=== PATIENT | female | born 1955 | race African-American/Black ===

== ENCOUNTER 2016-11-30 22:23 | Inpatient (IN) | payer MEDICARE, OTHER ==
--- NOTE | ~2016-11-30 | CO ---
Unit #: [id number] #: [id number] Patient: SHANA LLANES [id number] [place] [address] [id number] I MR#: [id number] NAME: SHANA LLANES. ROOM: 13 Age: 61 Sex: F Admission Date: 11/30/2016 : 1955 Attending Physician: Husam Stevens M.D. Consultation Date: 12/01/2016 CONSULTATION REPORT SUBJECTIVE Shana is a 61-year-old with history of psoriasis. She has thick plaques along her hairline at her forehead. These areas were described at the time of her admission H and P. please see H and P dated 12/01/2016. Dictated by... Mary Martinez P.A.-C. for Lisette Hyatt/valente TD: 12/04/2016 22:25 JOB #: [id number] CONSULTATION REPORT Page 1 of 1 X Mary Martinez CONSULTATION REPORT
--- NOTE | ~2016-11-30 | HP ---
Unit #: [id number] #: [id number] Patient: SHANA LLANES [id number] [place] [address] [id number] MR#: [id number] NAME: SHANA LLANES. ROOM: 13 Age: 61 Sex: F Admission Date: 11/30/2016 : 1955 Attending Physician: Husam Stevens M.D. Admitting Physician: Husam Stevens M.D. Primary Care Physician: Primary Care Physician No HISTORY AND PHYSICAL HISTORY OF PRESENT ILLNESS Shana is a 61 year old admitted to [address] [place] [address] with psychotic behavior. She is a poor historian so her history is taken from her chart. PAST MEDICAL HISTORY 1. Morbid obesity 2. Psoriasis 3. COPD 4. History of gout 5. Hypothyroid 6. Diabetes mellitus PAST SURGICAL HISTORY 1. Left knee 2. Hysterectomy ALLERGIES No known drug allergies. SOCIAL HISTORY She denies cigarettes. Admits to drinking on occasion and denies illicit drug use. FAMILY HISTORY Medically noncontributory. REVIEW OF SYSTEMS She does not answer questions appropriately. There are no reports of nausea, vomiting or diarrhea. She has no cough or increased temperature. CURRENT MEDICATIONS 1. Haldol 5 mg q.h.s. 2. Amitriptyline 50 mg q.h.s. 3. Vitamin B12 1000 mcg daily 4. Thiamine 100 mg daily 5. Folic acid 400 mcg q.a.m. 6. Coreg 25 mg b.i.d. 7. Aspirin 325 mg daily 8. Mobic 750 mg b.i.d. 9. Zyloprim 100 mg daily 10. Protonix 40 mg daily 11. Lopressor 25 mg b.i.d. Unit #: [id number] #: [id number] Patient: SHANA LLANES 12. Synthroid 0.15 mg daily 13. Glucophage 1000 mg b.i.d. 14. Milk of Magnesia p.r.n. 15. Maalox p.r.n. 16. Tylenol p.r.n. 17. Lioresal 20 mg t.i.d. p.r.n. PHYSICAL EXAMINATION GENERAL: Alert, obese, confused, in no apparent distress. VITAL SIGNS: Blood pressure 174/98, heart rate 80, respirations 16, temperature 98.6. WEIGHT: 338 pounds. HEIGHT: 5'4". SKIN: Warm and dry. She has thick dry plaquish rash along her hair line and forehead. HEENT: Normocephalic. TMs not viewed. Oral and nasal passages clear. Conjunctivae clear. Pupils equal, round and reactive to light and accommodation. Extraocular movements intact. NECK: Supple without lymphadenopathy or thyromegaly. HEART: Regular rate and rhythm without murmur. LUNGS: Clear. ABDOMEN: Soft, nontender. : Not done. EXTREMITIES: No evidence of cyanosis, clubbing or edema. Moves all extremities without focal deficit. NEUROLOGICAL: Unable to complete extended exam. She does move all extremities without focal deficit. Hand striker out is equal and gait is normal. IMPRESSION 1. Psychiatric admission. 2. Psoriasis. 3. High blood pressure, not controlled on admission. RECOMMENDATIONS PSYCHIATRIC: Per psychiatrist. MEDICAL: 1. I see no contraindications to participating in facility's activities. 2. Continue Coreg, Lopressor, Synthroid, Glucophage, Zyloprim, aspirin, Mobic. Check a TSH. Monitor blood pressure q shift. Constant Carb diet. MEDICAL PROGNOSIS Good. MEDICAL CONDITION Stable. Dictated by... Mary Martinez PMarvA.-C. for Lisette Hyatt/kvng Unit #: [id number] #: [id number] Patient: SHANA LLANES TD: 12/01/2016 23:29 JOB #: [id number] + HISTORY AND PHYSICAL Page 1 of 1 X Mary Martinez X HISTORY AND PHYSICAL
--- NOTE | ~2016-11-30 | PN ---
Unit #: [id number] #: [id number] Patient: ENRIKE LLANES [id number] [facility] [address] [place] [address] [id number] I MR#: [id number] NAME: ENRIKE LLANES. ROOM: 13 Age: 61 Sex: F Admission Date: 11/30/2016 : 1955 Attending Physician: Husam Stevens M.D. Admitting Physician: Husam Stevens M.D. Primary Care Physician: Primary Care Physician Charity SCHOFIELD PROGRESS NOTES DATE 12/02/2016 DISCUSSION Ms. Saldana is a 61-year-old female, seen on 12/02/2016. The patient interviewed, chart reviewed, and obtained information from the nursing staff. The patient reports that she ate this morning but, according to staff, the patient not eating. This morning blood sugar was 169. The patient's CMP was remarkable for hemoglobin 11.6, glucose 232 on admission. The patient continues to be seclusive, isolative, guarded. Vital signs, 97.6, 101, 18, and 173/01. The patient has been compliant with medication, but flat affect, no interaction with staff or peer, seems somewhat confused at times. REVIEW OF SYSTEMS Complete review of systems unremarkable. MENTAL STATUS EXAMINATION General appearance: Patient moderately obese. Attention span and concentration, poor. Oriented to place and person. Mood and affect, labile, flat. Speech, monotone. Thought process, concrete. The patient denied any thoughts of harming self or others but guarded. Recent and remote memory, poor. Insight and judgment, poor. DIAGNOSES 1. Psychosis, NOS. 2. Mood disorder, NOS. ASSESSMENT/PLAN Advised to continue with the current medication and therapeutic protocol and will monitor response to medication, and make further adjustment of medication. The patient was started on Haloperidol 5 mg. at bedtime. The patient is on trazodone 150 mg at bedtime, plan to consider taking her off from amitriptyline and trazodone and replace that with Remeron 15 mg at bedtime and keeping trazodone p.r.n. We will closely monitor. If needed consider further adjustment of medication. Unit #: [id number] #: [id number] Patient: ENRIKE LLANES by... Lisette Beck/yocasta TD: 12/03/2016 10:14 JOB #: [id number] [facility] PROGRESS NOTES Page 1 of 1 X Husam Stevens MD PROGRESS NOTE
--- NOTE | ~2016-11-30 | DS ---
Unit #: [id number] #: [id number] Patient: ENRIKE LLANES [id number] [place] [address] [id number] I MR#: [id number] NAME: ENRIKE LLANES. ROOM: [facility] Age: 61 Sex: F Admission Date: 11/30/2016 : 1955 Discharge Date: 12/03/2016 Attending Physician: Husam Stevens M.D. Primary Care Physician: Primary Care Physician No DISCHARGE SUMMARY REASON FOR ADMISSION Confusion and psychosis. DIAGNOSTIC STUDIES LABORATORY RESULTS: Unremarkable. HOSPITAL COURSE The patient was admitted to inpatient unit on 11/30/2016 and discharged on 12/03/2016. The patient was confused, developed low oxygen saturation of 81%, hypoxia, became more confused. Subsequently, the patient was sent to [facility] and subsequently, the patient was admitted to [facility] for further medical treatment and discharged to their care. DISCHARGE MEDICATIONS Remeron 15 mg at bedtime for depression, metformin 1000 mg b.i.d. for diabetes, Cogentin 0.5 mg b.i.d. for EPS symptom, Haldol 5 mg b.i.d. for psychosis, Klonopin 0.5 mg q.8 hours for anxiety, Coreg 25 mg b.i.d. for hypertension, clonidine 0.1 mg q.i.d. for hypertension, allopurinol 100 mg daily for gout, aspirin 325 mg daily for prophylaxis, and Mobic 7.5 mg b.i.d. for pain. The patient is also on Percocet, Protonix, Synthroid, multivitamin, thiamine, Symbicort, and albuterol. DISCHARGE DIAGNOSES Psychiatric: 1. Psychosis, not otherwise specified, F29.0. 2. Mood disorder, not otherwise specified, F32.9. Secondary diagnosis: Deferred. Medical diagnoses: Acute hypoxic respiratory failure, morbid obesity, chronic obstructive pulmonary disease, diabetes mellitus type 2, anemia, degenerative joint disease, history of goiter, gout. Stressors: Psychosocial stressors. DISCHARGE INSTRUCTIONS The patient is to follow up as per social security assessor. CONDITION ON DISCHARGE The patient was pleasant and cooperative. Denied any psychotic symptom. PROGNOSIS Guarded. Unit #: [id number] #: [id number] Patient: ENRIKE LLANES DIET AND ACTIVITY As tolerated. Dictated by... Lisette Beck/valente TD: 12/09/2016 18:41 JOB #: [id number] DISCHARGE SUMMARY Page 1 of 1 X Husam Stevens MD X DISCHARGE SUMMARY
--- NOTE | ~2016-11-30 | PA ---
Unit #: [id number] #: [id number] Patient: ENRIKE LLANES [id number] [facility] [address] [place] [address] [id number] I MR#: [id number] NAME: ENRIKE LLANES. ROOM: P113 Age: 61 Sex: F Admission Date: 11/30/2016 : 1955 Date of Assessment: Attending Physician: Husam Stevens M.D. Admitting Physician: Husam Stevens M.D. Primary Care Physician: Primary Care Physician No PSYCHIATRIC ASSESSMENT INFORMANTS The patient reliability, fair; chart reliability, good. CHIEF COMPLAINT Anxiety, paranoia, and agitation. HISTORY OF PRESENT ILLNESS Ms. Saldana is a 61-year-old female, seen on . The patient was transferred from [facility]. The patient was treated before that at [facility] and was having psychotic episodes. The patient had [address] [facility] when she became confused, anxious, agitated, paranoid, needed to call [employer], needed restraint. The patient is having those episodes and has no memories of that. The patient has a period of hostility, aggression toward staff, threatening to harm others. Delusional, paranoia. The patient required Haldol IM 5 mg. The patient was unable to give any reliable information. Reports lives at home, has a good support system. Denied any use of drugs or alcohol. Currently denied any thoughts of harming self or others, but somewhat guarded, paranoid, isolative. PAST PSYCHIATRIC HISTORY Unknown for any history of any outpatient treatment. FAMILY HISTORY AND SOCIAL HISTORY The patient has a good support system from family. No known history of any abuse or any substance abuse. MEDICAL HISTORY Remarkable for history of morbid obesity, hypertension, chronic pain, hypothyroidism, and diabetes. MEDICATION HISTORY The patient is currently on amitriptyline 50 mg at bedtime and vitamin B12 1000 mcg daily. The patient is on Accu-Cheks, thiamine 100 mg daily, folic acid 400 mcg daily, Coreg 25 mg b.i.d., aspirin 325 mg daily, Mobic 7.5 mg b.i.d., Zyloprim 100 mg daily, Protonix 40 mg daily, Lopressor 25 mg b.i.d., Synthroid 0.15 mg daily, and Glucophage 1000 mg b.i.d. ALLERGIES No known drug allergies. SUBSTANCE ABUSE HISTORY None. Unit #: [id number] #: [id number] Patient: ENRIKE LLANES REVIEW OF SYSTEMS HEENT: Eyes, clear. Ears, nose, mouth, and throat; clear. CARDIOVASCULAR: Unremarkable. RESPIRATORY: Unremarkable GI: Unremarkable. : Unremarkable. SKIN: Unremarkable. LYMPH NODE: Unremarkable. NEUROLOGIC: Unremarkable. ENDOCRINE: Unremarkable. HEMATOLOGIC: Unremarkable. ALLERGIC/IMMUNOLOGIC: Unremarkable. MUSCULOSKELETAL: Muscle strength and tone, no atrophy or abnormal movement. Gait normal. MENTAL STATUS EXAMINATION CONSTITUTIONAL: Measurement of vital signs; blood pressure 157/98 and pulse 110. Weight is 338 pounds and height 5 feet 4 inches. GENERAL APPEARANCE: The patient dressed casually, in hospital attire. The patient did not show any facial deformity. MUSCULOSKELETAL: Please see above. PSYCHIATRIC EXAMINATION Description of speech, slow in rate and long pauses. Description of thought process; circumstantial, guarded. Description of association; guarded, paranoid, mood lability, sad, depressed, but denied any thoughts of harming self or others, but aggression, paranoia. Description of the patient's judgment: Concerning everyday activity, poor. Social situation, poor. Concerning psychiatric condition, poor. Complete mental status examination; oriented in time and place. Attention span and concentration, poor. Recent and remote memory, poor. Language; able to name object, repeat phrases. Fund of knowledge, fair. Vocabulary, fair. Mood and affect, sad and dysphoric. Insight and judgment, fair to poor. ASSETS AND LIABILITIES Assets; the patient is articulate, able to take care of her ADL. Liabilities; history of depression, psychosis. ADMITTING DIAGNOSES Psychiatric: 1. Mood disorder, not otherwise specified, F32.9. 2. Psychosis, not otherwise specified, F29.0. 3. Anxiety disorder, not otherwise specified. Secondary diagnosis: Deferred. Medical diagnoses: Hypothyroidism, diabetes, arthritis, psoriasis, obesity, high cholesterol. Stressors: Psychosocial stressors. PSYCHIATRIC PLAN, TREATMENT GOAL, AND DISCHARGE PLAN 1. Advised to admit the patient on the inpatient unit. Provide safe, supportive, and structured environment. 2. Ordered labs; CBC, CMP, UA, UDS, and Accu-Cheks. 3. Advised to continue with current medication. Precaution for psychosis Unit #: [id number] #: [id number] Patient: ENRIKE LLANES and self-harm. If needed, consider further adjustment of medication such as considering adding Haldol 5 mg at bedtime. 4. The patient is to attend all the programing on the inpatient unit. 5. Treatment goal is to attain euthymic mood, gain insight into her problem, and learn coping skills. 6. Discharge plan: Plan is to stabilize the patient and consider followup in outpatient program. ESTIMATED LENGTH OF STAY 5 days. Dictated by... Husam Stevens M.D. MAURA/valente TD: 12/01/2016 16:22 JOB #: [id number] PSYCHIATRIC ASSESSMENT Page 1 of 1 X Husam Stevens MD X PSYCHIATRIC ASSESSMENT
[~2016-11-30 22:23] MED LIST: ACETAMINOPHEN PO; ADVAIR DISKU1 250/50 INH; AMITRYPTYLINE PO; ATIVAN0.5 MG; ATIVAN0.5 MG PO; BENADRYL PO; CLARITIN10 MG PO; DARVOCET-N 1001 TAB PO; DIFLUCAN50 MG PO; DIOVAN HCT 160/1 TAB PO; DIOVAN PO; EMBREL; FERRO-TIME325 MG PO; HYDROXYZINE HCL50 MG PO; LASIX PO; LASIX20 MG PO; LEXAPRO PO; NEXIUM PO; PERCOCET 5-3251 TAB PO; PHENERGAN25 MG PO; PROZAC40 MG PO; REGLAN PO; TOPAMAX PO; TRAMADOL HCL50 M2 PO; ZANAFLEX4 M1 PO; ZEGERID40 MG/PKT PO; ZOCOR20 MG PO; ZYRTEC10 M2 PO; [UNRECOGNIZED DRUG - OTHER]
[2016-12-01 12:30] LABS: BASOPHIL# 0.1 X10e3 (0-0.3); EOSINOPHIL# 0.1 X10e3 (0-0.7); EOSINOPHIL% 0.6 % (0.0-7.0); HEMATOCRIT 35.6 % (35.0-45.0); HEMOGLOBIN 11.6 gm/dL (12.0-16.0); LYMPHOCYTE# 1.8 X10e3 (1.0-3.5); LYMPHOCYTE% 18.3 % (17.0-45.0); MEAN CELL VOLUME 83.1 FL (83-96); MEAN CORPUSCULAR HEMOGLOBIN 27.1 PG (28-34); MEAN CORPUSCULAR HGB CONC 32.6 g/dL (30-36); MEAN PLATELET VOLUME 9.1 FL (6.5-11.5); MONOCYTE# 0.9 X10e3 (0-1.0); MONOCYTE% 9.4 % (3.0-12.0); NEUTROPHIL# 7.1 X10e3 (1.5-7.1); NEUTROPHIL% 70.7 % (40-75); PLATELET COUNT 194 X10e3 (140-420); RED BLOOD COUNT 4.28 X10e (3.90-5.30); RED CELL DISTRIBUTION WIDTH 15.9 % (11.0-15.5)
[2016-12-01 12:46] LABS: ALBUMIN SERUM 3.9 g/dL (3.5-5.0); BILIRUBIN,TOTAL 0.3 mg/dL (0.2-2.0); BUN/CREATININE RATIO 9.16; CALCIUM SERUM 9.6 mg/dL (8.4-10.2); CREATININE SERUM 1.2 mg/dL (0.6-1.4); GLOM FILT RATE Estimated 58.7 mL/min (>60); PROTEIN TOTAL SERUM 8.1 g/dL (6.0-8.3)
[2016-12-01 12:49] LABS: DIFF IND NO
[2016-12-03] MEDS ORDERED: SYNTHROID0.15 MG PO (02:11)
[2016-12-03] MEDS ORDERED: GLUCOPHAGE500 M1 PO (02:12)
[2016-12-03] MEDS ORDERED: METOPROLOL TAR25 MG PO (02:13)
[2016-12-03] MEDS ORDERED: PANTOPRAZOLE SO40 MG PO (02:14)
[2016-12-03] MEDS ORDERED: ZYLOPRIM100 MG PO (02:15)
[2016-12-03] MEDS ORDERED: MOBIC PO (02:15)
[2016-12-03] MEDS ORDERED: ASPIR-TRIN325 MG PO (02:16)
[2016-12-03] MEDS ORDERED: CARVEDILOL25 MG PO (02:17)
[2016-12-03] MEDS ORDERED: REMERON15 MG PO ×2 (02:19→03:06)
[2016-12-03] MEDS ORDERED: OXYCODONE-APAP1 EAC5 PO (02:21)
[2016-12-03] MEDS ORDERED: BACLOFEN10 MG PO (02:22)
[2016-12-03] MEDS ORDERED: CATAPRES0.1 MG PO (02:22)
[2016-12-03] MEDS ORDERED: AL-MAG HYDROX-S30 M1 PO (02:49)
[2016-12-03] MEDS ORDERED: ACETAMINOPHEN650 M3 PO (02:52)
[2016-12-03] MEDS ORDERED: MILK OF MAGNESIA PO (03:06)
[2016-12-03] MEDS ORDERED: B-COMPLEX WIT400 MC1 PO (03:09)
[2016-12-03] MEDS ORDERED: THIAMINE HCL100 M1 PO (03:09)
[2016-12-03] MEDS ORDERED: CYANOCOBALAM1000 MCG PO (03:10)
[2016-12-03] MEDS ORDERED: HALDOL0.5 MG PO (03:12)
[2016-12-03] MEDS ORDERED: PERCOCET5/325 PO (03:14)
[2016-12-03] MEDS ORDERED: LOVENOX30 MG/0.3 SUBQ (03:15)
== END 2016-12-03 10:10 | DRG 885 ==
LOC: P1S 22:23
PROVIDERS: Psychiatry & Neurology Psychiatry
DX: F39 Unspecified mood [affective] disorder (principal); E11.9 Type 2 diabetes mellitus without complications; F32.9 Major depressive disorder, single episode, unspecified; F29 Unspecified psychosis not due to a substance or known physiological condition; F41.9 Anxiety disorder, unspecified; E03.9 Hypothyroidism, unspecified; M19.90 Unspecified osteoarthritis, unspecified site; L40.9 Psoriasis, unspecified; E66.9 Obesity, unspecified; E78.00 Pure hypercholesterolemia, unspecified; Z79.82 Long term (current) use of aspirin
CPT/HCPCS: 80053; 82947; 85025

== ENCOUNTER 2016-12-02 21:52 | Inpatient (IN) | payer MEDICARE, OTHER ==
--- NOTE | ~2016-12-02 | EKG ---
PATIENT: ENRIKE LLANES UNIT #: [id number] Ventricular Rate: 98 BPM Atrial Rate: 98 BPM P-R Interval: 162 ms QRS Duration: 80 ms Q-T Interval: 368 ms QTC Calculation(Bezet): 469 ms P [place]: 55 degrees Calculated R [place]: -9 degrees Calculated T [place]: 43 degrees Diagnosis Line: Sinus rhythm with occasional Premature ventricular Diagnosis Line: complexes Diagnosis Line: Otherwise normal ECG Diagnosis Line: No previous ECGs available Diagnosis Line: Confirmed by KEMAR SEN MD ([id number]) on 12/06/2016 Diagnosis Line: 10:42:01 PM INTERPRETING MD: FRANCY KEYS
--- NOTE | ~2016-12-02 | CT71 ---
[facility] A Service of [facility] RADIOLOGY TEXT RESULTS PATIENT: ENRIKE LLANES LOCATION: [facility] 320- : 55 UNIT #: [id number] AGE: [address]: Radha Jackson MD SEX: F ORDER DR: [id number] [place] [facility]. [place], [place] [address] [id number] MR#: [id number] Acc #: [id number] NAME: ENRIKE LLANES : 1955 SEX: F STUDY DATE/TIME: 12/02/2016 23:25 UNIT: CEDOF ROOM: 29504 STUDY DESCRIPTION: CT Head Wo Contrast Attending Physician: Radha Jackson M.D. Ordering Physician: Vick Nelson D.O. Primary Care Physician: Primary Care Physician No MEDICAL IMAGING REPORT This report is preliminary unless electronic signature is present EXAM CT head, noncontrast, 12/02/2016 HISTORY 61-year-old female in the ED complaining of new onset confusion/mental status changes today. Weakness. Shortness of air and hypoxia are also noted. TECHNIQUE CT examination of the head without IV contrast. This CT examination was performed with one or more of the following radiation dose reduction techniques: automatic exposure control, adjustment of mA and/or kV according to patient size, and iterative reconstruction. FINDINGS The examination is negative. No evidence of intracranial hemorrhage, mass, mass effect, cerebral edema, hydrocephalus or additional abnormality. No significant change since the recent study of 11/25/2016. IMPRESSION No acute intracranial abnormality. No change since 11/25/2016. Dictated by... Jackson Estrada M.D. THIS IS AN ELECTRONICALLY VERIFIED REPORT Jackson Estrada M.D. at 12/07/2016 5:00 PM MACO/fanny TD: 12/03/2016 07:46 JOB #: [id number] [facility] A Service of [facility] RADIOLOGY TEXT RESULTS PATIENT: ENRIKE LLANES LOCATION: [facility] 320-01 : 55 UNIT #: [id number] AGE: [address]: Radha Jackson MD SEX: F ORDER DR: MEDICAL IMAGING REPORT Page 1 of 1 COPY
--- NOTE | ~2016-12-02 | CO ---
Unit #: [id number] #: [id number] Patient: SHANA MAYNARD [id number] [address] [place], [place] [address] [id number] I MR#: [id number] NAME: SHANA MAYNARD. ROOM: 320 Age: 61 Sex: F Admission Date: 12/03/2016 : 1955 Attending Physician: Radha Jackson M.D. Consultation Date: 12/05/2016 CONSULTATION REPORT REASON FOR CONSULTATION Increase paranoia, agitation, called 911. HISTORY OF PRESENT ILLNESS Ms. Shana Maynard is a 61-year-old female, seen in room 320 on 12/05/2016. The patient was pleasant and cooperative, sitting comfortably in chair. The patient reported that she gets very paranoid, also periods of delusions, calling 911 last night because of that. The patient reported feeling as if people are coming after her. The patient needing oxygen as needed, reports getting better, cooperative during interview. Pleasant and cooperative, but denied any thoughts of harming self or others, but admitted periods of increased paranoia. REVIEW OF SYSTEMS Complete review of systems is unremarkable. MENTAL STATUS EXAMINATION General appearance; the patient moderately obese, sitting comfortably in chair, dressed in hospital attire. Attention span and concentration, fair. Speech, slow with long pauses. Oriented in time, place, and person. Mood and affect were sad, dysphoric, flat. Thought process, coherent and goal directed. Thought content, the patient denied any thoughts of harming self or others, but guarded, paranoid, delusional. Recent and remote memory, fair to poor. Language, able to name object and repeat phrases. Fund of knowledge, fair. Insight and judgment, fair to slightly impaired. DIAGNOSES Psychiatric: Psychosis, not otherwise specified, F29.0; major depressive disorder, recurrent, F33.2. ASSESSMENT/PLAN 1. Supportive psychotherapy and psychoeducation provided to the patient. 2. Educated about benefits and side effects of medication and course and prognosis of illness. 3. Advised to increase Haldol to 5 mg b.i.d. and add Cogentin 0.5 mg b.i.d. for the above-mentioned symptom. We will closely monitor. If needed, consider further adjustment of medication. If no improvement, after the patient is medically stable consider inpatient at [facility]. We will continue to follow. Please feel free to call if any questions, telephone #[phone]. Dictated by... Unit #: [id number] #: [id number] Patient: SHELLY MAYNARDLisette Antony/valente TD: 12/06/2016 03:05 JOB #: [id number] CONSULTATION REPORT Page 1 of 1 X Husam Stevens MD X CONSULTATION REPORT
--- NOTE | ~2016-12-02 | CO ---
Unit #: [id number] #: [id number] Patient: SHANA MAYNARD [id number] [facility]. [place], [place] [address] [id number] I MR#: [id number] NAME: SHANA MAYNARD. ROOM: 320 Age: 61 Sex: F Admission Date: 12/03/2016 : 1955 Attending Physician: Radha Jackson M.D. Primary Care Physician: Primary Care Physician No Consultation Date: 12/06/2016 CONSULTATION REPORT REASON FOR CONSULTATION Followup. DISCUSSION Ms. Shana Maynard is a 61-year-old female seen in room 320, bed 1, on 12/06/2016 at [facility]. The patient had a seizure-like activity. The patient was sitting in chair and was shaking. She was able to follow commands. When asked to raise her arms, she was able to do that and was . The patient when asked to raise legs, she did that. Patient refusing to answer any questions, keeping her eyes closed. Vital signs 98.9, 89, 16, 151/77. Patient tolerating medication fairly well. No aggression but still having bizarre behavior at times at night. REVIEW OF SYSTEMS A complete review of systems is unremarkable except as mentioned above. MENTAL STATUS EXAMINATION GENERAL APPEARANCE: Patient is morbidly obese, sitting comfortably in a chair. I noticed some seizure-like activity. Attention span and concentration poor. Speech unable to assess orientation. Unable to assess mood and affect labile. Thought process, thought content guarded. Recent and remote memory poor. Language intact. Fund of knowledge is poor. Insight and judgment impaired. PSYCHIATRIC DIAGNOSES Psychosis, not otherwise specified. SECONDARY DIAGNOSES Deferred. ASSESSMENT AND PLAN Supportive psychotherapy and psychoeducation provided to patient but patient unable to comprehend much at this time. Patient has periods of time when she has behavior but most of the time she does well. Patient requires oxygen at all times, 2 liters at this time which may be contributing when she has oxygen on in the presence of steroids. Recommending patient to follow on the outpatient basis once patient is medically cleared. In the meantime, we will continue to follow. Continue with current medication Haldol 5 mg b.i.d. and Cogentin 0.5 mg b.i.d. Unit #: [id number] #: [id number] Patient: SHANA MAYNARD Miguel A Dictated by..Lisette Dockery/prosper TD: 12/07/2016 21:08 JOB #: [id number] CONSULTATION REPORT Page 1 of 1 X Husam Stevens MD X CONSULTATION REPORT
--- NOTE | ~2016-12-02 | BMI ---
[facility] Nutrition Therapy DATE: 12/04/16 Patient: ENRIKE REYESNTON Physician: CURTIS Address: [address] Room/Bed: [address] [place] [address], Zip: [place] [address] Admit Date: 12/03/16 Date of : 55 Height: 5 4 Weight: 341 154.67 HIGH BMI NOTE: DX: PATIENT ADMITTED FOR ALTERED MENTAL STATUS ANTHROPOMETRICS: HT: 5'4", WT: 340#, BMI: 58.4 DIET: CC DIET RECOMMENDATIONS: RECOMMEND ADDING HEART HEALTHY TO CURRENT DIET ORDER TO PROMOTE A STEADY WEIGHT LOSS TOWARDS A HEALTHY BMI OF 19-25 Respectfully, ELISABET MOONEY, CLAUDETTE, LD [facility] cc: client file
--- NOTE | ~2016-12-02 | DS ---
Unit #: [id number] #: [id number] Patient: ENRIKE LLANES [id number] [address] [address] [id number] I MR#: [id number] NAME: ENRIKE LLANES. ROOM: 320 Age: 61 Sex: F Admission Date: 12/03/2016 : 1955 Discharge Date: Attending Physician: Radha Jackson M.D. Primary Care Physician: No Primary Care Physician DISCHARGE SUMMARY ADDENDUM I discussed with Dr. Stevens. According to him, the patient can go home. Also director of social work evaluated her and she is stable. No hallucinations. No shaking. No anxiety today. The patient had a bedside sitter, which I am going to discontinue and discharge home as per Dr. Stevens's recommendation. DISCHARGE MEDICATIONS Also, please note change in medication. The patient was not discharged on Klonopin. DISPOSITION Discharge home. FOLLOWUP 1. Follow up with family physician in one week time. 2. Follow up with [facility] in three days time. I discussed with the daughter about needing to take oxygen 04/04 and also following up with psychiatrist. She understands the instructions. Son not available to talk as per daughter. I called the son's number, but not reachable. Discharge time taken is 32 minutes. Dictated by... Lisette Rapp TD: 12/07/2016 09:47 JOB #: [id number] Unit #: [id number] #: [id number] Patient: ENRIKE LLANES DISCHARGE SUMMARY Page 1 of 1 X Radha Jackson MD X DISCHARGE SUMMARY
--- NOTE | ~2016-12-02 | HP ---
Unit #: [id number] #: [id number] Patient: ENRIKE LLANES [id number] [address] [place], [place] [address] [id number] I MR#: [id number] NAME: ENRIKE LLANES. ROOM: 59415 Age: 61 Sex: F Admission Date: 12/03/2016 : 1955 Attending Physician: Sierra Larson M.D. Primary Care Physician: No Primary Care Physician HISTORY AND PHYSICAL CHIEF COMPLAINT Respiratory failure and acute kidney injury. HISTORY This pleasant 61-year-old female, with obstructive sleep apnea, COPD, often times at home on oxygen, with history of hypertension, AODM and hypothyroidism, was transferred from [facility] for acute kidney injury and low oxygen. Patient had been admitted to [facility] 11/22/2016 for tremors, weakness, acute kidney injury which was treated. Had some problems with confusion. Initially, it was felt she could go home with outpatient psychiatric services. She was readmitted to [facility] 11/27/2016 for confusion. Apparently, at some point became aggressive to staff, and was thought to be psychotic. Was transferred to [facility] 11/30/2016. At [facility], she required Haldol, had low O2 sats, and was transferred to this emergency department late last evening. On 2 L of oxygen, her O2 saturation is 99%. The patient is mildly sedated but easily arousable. She tells me that she does use 2 L of oxygen at home. Denies shortness of breath currently, wheezing or chest pain. No cough. She does admit to poor p.o. intake. Labs are notable for acute kidney injury with a creatinine of 2.4, up from a creatinine of 1.2 yesterday. PAST MEDICAL HISTORY 1. COPD and organic brain syndrome, on home oxygen and possibly BiPAP. 2. Hypertension. 3. 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 4. Anemia. 5. DJD. 6. AODM. 7. Gout. 8. . 9. T and A. 10. Right total knee replacement. 11. I and D of a groin abscess. 12. Total abdominal hysterectomy. ALLERGIES No known drug allergies. MEDICATIONS [facility]: 1. Remeron 15 mg q. h.s. Unit #: [id number] #: [id number] Patient: ENRIKE LLANES 2. Percocet 10/325 q.i.d. p.r.n. 3. Haldol 5 mg p.o. q. h.s. 4. Vitamin B12 1000 mcg daily. 5. Thiamine 100 mg daily. 6. Folic acid 400 mcg daily. 7. Coreg 25 mg b.i.d. 8. Aspirin 325 mg daily. 9. Mobic 7.5 mg b.i.d. 10. Zyloprim 100 mg daily. 11. Protonix 40 mg daily. 12. Lopressor 25 mg b.i.d. 13. Synthroid 0.15 mg daily. 14. Glucophage 1000 mg b.i.d. 15. P.r.n. MOM, Tylenol, Maalox. 16. Protonix 40 mg daily. 17. Clonidine 0.1 mg q.6 hours as needed. 18. Baclofen 20 mg t.i.d. as needed. FAMILY HISTORY Hypertension. SOCIAL HISTORY The patient lives with her son. She is a lifelong nonsmoker, does not drink alcohol. REVIEW OF SYSTEMS Somewhat difficult to obtain as patient still is mildly sedated after receiving Haldol earlier at Our . PHYSICAL EXAMINATION GENERAL APPEARANCE: Pleasant, obese 61-year-old female, currently in no acute distress. VITAL SIGNS: Temperature 98.2, pulse 98, respirations 21, blood pressure 128/76. O2 saturation is 99% on 2 L of oxygen. HEENT: Eyes PERRLA. Extraocular muscles are intact. Pharynx is benign. NECK: Supple without adenopathy or thyromegaly. CHEST: Clear. CARDIAC: Normal S1 and S2 without S3, S4 or murmur. ABDOMEN: Bowel sounds are present. No hepatosplenomegaly, tenderness or masses. EXTREMITIES: Without clubbing, cyanosis or edema. Pedal pulses are present. NEUROLOGIC Exam: The patient is somnolent but arousable. I have to prompt her a couple of times to answer my questions. Cranial nerves are intact. She has equal strength throughout. She does have some intermittent twitching. DIAGNOSTIC STUDIES LABORATORY: Hematocrit is 31.5, down from 35.6 yesterday. Normal MCV. White blood count is 16.9. Normal platelet count. SMA-12 - glucose 203, BUN 29, creatinine 2.4, up from a BUN of 11, creatinine of 1.2 two days ago. BNP, ammonia level, lactic acid normal. TSH normal. Acetaminophen and salicylate levels negligible. Unit #: [id number] #: [id number] Patient: ENRIKE LLANES Alcohol level negligible. ABG - pH 7.39, pCO2 41, pO2 93, O2 saturation is 95.7% on 2 L of oxygen. Cardiac markers are negative. Urine tox screen positive for TCA. Urinalysis unremarkable. IMAGING: Chest x-ray - no acute disease. Head CT - no acute chest. Chest x-ray - stable. Mild cardiomegaly. CARDIOVASCULAR: EKG - normal sinus rhythm, rate 98, occasional PVC noted. ASSESSMENT 1. Decreased O2 sats at [facility]: The patient does have chronic obstructive pulmonary disease and obstructive sleep apnea. She states that she uses home oxygen and BiPAP versus CPAP at home. Her ABG looks good on low dose oxygen. 2. Acute kidney injury which may be related to poor p.o. intake and Mobic. 3. Admission to [facility] for psychosis: Currently on Haldol. 4. Hypothyroidism, status post I-131 ablation and thyroidectomy. 5. Essential hypertension. 6. Adult onset diabetes mellitus. 7. Degenerative joint disease. 8. Leukocytosis of uncertain etiology. PLANS 1. Will continue 2 L of oxygen as patient uses that at home. Will decrease Percocet. 2. IV fluids, discontinue Mobic. Recheck labs in the morning. 3. Hold metformin for now. 4. DVT prophylaxis. 5. Will ask Dr. Stevens to follow while hospitalized. 6. Further workup and consultants depending on response to above. Dictated by Sierra Larson M.D. AML/df TD: 12/03/2016 06:21 JOB #: [id number] Unit #: [id number] #: [id number] Patient: ENRIKE LLANES HISTORY AND PHYSICAL Page 1 of 1 X Sierra Larson MD HISTORY AND PHYSICAL
--- NOTE | ~2016-12-02 | NM69 ---
[facility] A Service of [facility] RADIOLOGY TEXT RESULTS PATIENT: ENRIKE LLANES LOCATION: [facility] 320-01 : 55 UNIT #: [id number] AGE: [address]: Radha Jackson MD SEX: F ORDER DR: [id number] [facility]. [place], [place] [address] [id number] I MR#: [id number] Acc #: [id number] NAME: ENRIKE LLANES. : 1955 SEX: F STUDY DATE/TIME: 12/04/2016 15:04 UNIT: [address] ROOM: [facility] STUDY DESCRIPTION: NM Pulm Vent and Perf Attending Physician: Radha Jackson M.D. Ordering Physician: Radha Jackson M.D. Primary Care Physician: No Primary Care Physician MEDICAL IMAGING REPORT This report is preliminary unless electronic signature is present EXAM Ventilation-perfusion lung scan HISTORY 61-year-old female chest pain, shortness of air onset 12/04/2016 elevated D-dimer. COMPARISON PA and lateral chest 12/04/2016 FINDINGS Ventilation-perfusion lung scan was performed in standard 8 projections. Perfusion agents 6 mCi technetium 99m MAA and the ventilation agent 33.2 mCi technetium 99m DTPA aerosol. Examination demonstrates matched ventilation-perfusion defect in the right lung base corresponding to elevated right hemidiaphragm and possible right pleural effusion as noted on chest radiograph. Left lung demonstrates normal ventilation and perfusion with no ventilation-perfusion mismatches. No mismatches are seen within the remaining ventilated and perfused right lung. Cardiomegaly. IMPRESSION A single matched ventilation-perfusion lung defect in the right lung base which is felt to correspond to an elevated right hemidiaphragm volume loss and probable right pleural effusion. Study is considered low probability for pulmonary embolus. Dictated by... Miguel Ann M.D. THIS IS AN ELECTRONICALLY VERIFIED REPORT Miguel Ann M.D. at 12/05/2016 10:51 PM JMS/rnr [facility] A Service of [facility] RADIOLOGY TEXT RESULTS PATIENT: ENRIKE LLANES LOCATION: [facility] 320-01 : 55 UNIT #: [id number] AGE: [address]: Radha Jackson MD SEX: F ORDER DR: TD: 12/05/2016 05:16 JOB #: [id number] MEDICAL IMAGING REPORT Page 1 of 1 COPY
--- NOTE | ~2016-12-02 | DS ---
Unit #: [id number] #: [id number] Patient: ENRIKE LLANES [id number] [address] [address] [id number] I MR#: [id number] NAME: ENRIKE LLANES. ROOM: 320 Age: 61 Sex: F Admission Date: 12/03/2016 : 1955 Discharge Date: Attending Physician: Radha Jackson M.D. DISCHARGE SUMMARY DISCHARGE DIAGNOSES 1. Acute hypoxic respiratory failure on chronic respiratory failure. Patient was on home oxygen of which she needs two liters 04/04, and possibly she needs BiPAP at home. 2. Morbid obesity. 3. Chronic obstructive pulmonary disease with exacerbation. 4. Psychiatric issues. She came from [facility] during this hospitalization. 5. 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 6. Anemia. 7. Degenerative joint disease. 8. History of goiter requiring I-131 ablation and ultimately thyroidectomy, now hypothyroidism. 9. Gout. CONSULTANTS Dr. Stevens. PROCEDURES None. DIAGNOSTIC STUDIES LABORATORY: Glucose 269. WBC 9.4, hemoglobin 10.5, and platelets 195,000. Troponin 0.03. D-dimer 777. Magnesium 1.4. IMAGING: Chest x-ray shows bibasilar atelectasis. V/Q scan is negative. CAT scan of the head with no acute changes. ALLERGIES None. DISCHARGE MEDICATIONS 1. Tylenol 650 at 4 times daily. 2. Remeron 15 mg at bedtime. 3. Metformin 1000 p.o. b.i.d. 4. Cogentin 0.5 p.o. b.i.d. 5. Haldol 5 mg p.o. b.i.d. 6. Klonopin 0.5 every 8 hours. 7. Coreg 25 p.o. b.i.d. 8. Milk of Magnesia 30 mL p.o. daily. 9. Clonidine 0.1 mg 4 times daily. 10. Allopurinol 100 daily. 11. Aspirin 325 daily. 12. Mobic 7.5 p.o. b.i.d. Unit #: [id number] #: [id number] Patient: ENRIKE LLANES 13. Percocet 5 mg 4 times daily p.r.n. pain. 14. Protonix 40 p.o. daily. 15. Synthroid 0.15 mg p.o. daily. 16. Multivitamin 1 tablet daily. 17. Thiamine 100 daily. 18. Vitamin B12 at 1000 mcg p.o. daily. 19. Symbicort 160 mcg 2 puffs inhalation b.i.d. 20. Albuterol MDI 2 puffs inhalation q.i.d. p.r.n. HOSPITAL COURSE This is a 61-year-old admitted because of shortness of breath from [facility]. Acute on chronic hypoxic respiratory failure most likely secondary to COPD. Continue with home O2 at two liters. Chronic obstructive pulmonary disease with exacerbation. Started on IV Solu-Medrol but the Solu-Medrol makes her more anxious for which she is needing more Haldol and Klonopin. I discontinued Solu-Medrol and continued with DuoNebs and Symbicort. Psychiatric issues. Patient was seen by Dr. Stevens. He recommends continuing with current medications. [facility] to evaluate before discharge. Diabetes type 2, uncontrolled, secondary to steroids. Continue with metformin. Steroid has been discontinued. Hypertension, uncontrolled. Continue with Coreg and clonidine. CONDITION ON DISCHARGE Patient is medically stable to go to [facility]. DISCHARGE INSTRUCTIONS 1. [facility] to evaluate her. 2. Patient needs oxygen 24/7 at two liters. 3. Follow with primary care physician in one week upon discharge. 4. Discuss with Dr. Stevens. Discharge time taken is 32 minutes. Dictated by... Lisette Rapp TD: 12/06/2016 15:33 JOB #: [id number] Unit #: [id number] #: [id number] Patient: ENRIKE LLANES DISCHARGE SUMMARY Page 1 of 1 X Radha Jackson MD DISCHARGE SUMMARY
--- NOTE | ~2016-12-02 | EKG ---
PATIENT: ENRIKE LLANES UNIT #: [id number] Ventricular Rate: 95 BPM Atrial Rate: 95 BPM P-R Interval: 156 ms QRS Duration: 84 ms Q-T Interval: 376 ms QTC Calculation(Bezet): 472 ms P Magazine: 53 degrees Calculated R Magazine: -6 degrees Calculated T Magazine: 41 degrees Diagnosis Line: Normal sinus rhythm Diagnosis Line: Normal ECG Diagnosis Line: When compared with ECG of 02-DEC-2016 22:04, Diagnosis Line: (unconfirmed) Diagnosis Line: Premature ventricular complexes are no longer Diagnosis Line: Present Diagnosis Line: Confirmed by KEMAR SEN MD ([id number]) on 12/06/2016 Diagnosis Line: 10:52:22 PM INTERPRETING MD: FRANCY KEYS
--- NOTE | ~2016-12-02 | CO ---
Unit #: [id number] #: [id number] Patient: ENRIKE LLANES [id number] [address] [place], [place] [address] [id number] I MR#: [id number] NAME: ENRIKE LLANES ROOM: 320 Age: 61 Sex: F Admission Date: 12/03/2016 : 1955 Attending Physician: Radha Jackson M.D. Primary Care Physician: Primary Care Physician No Consultation Date: 12/07/2016 CONSULTATION REPORT DISCUSSION Ms. Saldana is a 61-year-old female, seen on 12/07/2016. The patient interviewed, chart reviewed, and obtained information from nursing staff. The patient was somewhat sleepy, drowsy, but cooperative and redirectable. The patient has a sitter. No aggressive behavior or bizarre behavior. Last night compliant with medication, currently on Haldol 5 mg b.i.d. The patient is currently requiring oxygen 04/04. The patient was able to maintain oxygen saturation in 90s. The patient did not show any aggression or agitation. Able to answer questions appropriately. REVIEW OF SYSTEMS Complete review of systems unremarkable. MENTAL STATUS EXAMINATION General appearance, the patient moderately obese. Attention span and concentration, fair. Speech, slow. Oriented in place and person. Mood and affect, sad, dysphoric, flat. Thought process, circumstantial. Thought content, guarded. Recent and remote memory, fair. Language, able to name object, repeat phrases. Fund of knowledge, fair. Insight and judgment, fair to slightly impaired. DIAGNOSES Psychiatric: Psychosis, not otherwise specified, F29.0. Secondary diagnosis: Deferred. ASSESSMENT/PLAN 1. Supportive psychotherapy and psychoeducation provided to the patient. 2. Educated about benefits and side effects of medication and course and prognosis of illness. 3. Advised to continue with current combination of Haldol and Cogentin and we are okay at this time for the patient to be discharged home and follow up on the outpatient basis. Please feel free to call if any questions, telephone #[phone]. Dictated by... Husam Stevens M.D. MAURA/valente TD: 12/08/2016 04:58 JOB #: [id number] Unit #: [id number] #: [id number] Patient: ENRIKE LLANES CONSULTATION REPORT Page 1 of 1 X Husam Stevens MD CONSULTATION REPORT
--- NOTE | ~2016-12-02 | CO ---
Unit #: [id number] #: [id number] Patient: SHANA LLANES [id number] [facility]. [place], [place] [address] [id number] I MR#: [id number] NAME: SHANA LLANES. ROOM: 320 Age: 61 Sex: F Admission Date: 12/03/2016 : 1955 Attending Physician: Radha Jackson M.D. Primary Care Physician: Primary Care Physician No Consultation Date: 12/04/2016 CONSULTATION REPORT REASON FOR CONSULTATION Confusion, paranoia, delusions. HISTORY OF PRESENT ILLNESS Ms. Shana Llanes is a 61-year-old female, who was admitted [facility], seen on 12/04/2016 in room 320. The patient was admitted due to respiratory failure, acute kidney injury. The patient has a history of COPD, AODM, hypertension. [facility] symptom. The patient was on Haldol. The patient still having paranoia, mood lability, and also having problem with anxiety and periods of delusions and agitation, but no aggressive behavior. The patient was pleasant and cooperative during interview. PAST PSYCHIATRIC HISTORY Remarkable for history of delusions and paranoia. MEDICAL HISTORY History of COPD, hypertension, history of compressive goiter require 131 ablation, anemia, DJD, AODM, gout. ALLERGIES No known drug allergies. MEDICATIONS The patient is on Remeron, Percocet, Haldol, vitamin D, thiamine, folic acid, Coreg, aspirin, Mobic, Zyloprim, Protonix, Lopressor, Synthroid, Glucophage, clonidine, and baclofen. FAMILY HISTORY AND SOCIAL HISTORY The patient has a good support system. Lives with her son. No history of any abuse. No history of any substance abuse. REVIEW OF SYSTEMS Complete review of systems is unremarkable except for low oxygen as mentioned above and confusion. MENTAL STATUS EXAMINATION General appearance; the patient moderately obese, dressed casually in hospital attire, lying comfortably in bed. Attention span and concentration, fair. Speech, slow with long pauses. Oriented in place and person. Mood and affect; sad, dysphoric, flat. Thought process, circumstantial. Thought content, the patient denied any thoughts of harming self or others, but guarded, paranoid and having more increase in Unit #: [id number] #: [id number] Patient: SHANA LLANES paranoia toward the evening. Recent and remote memory, fair to poor. Language, able to name object and repeat phrases. Fund of knowledge, fair to slightly impaired. Insight and judgment, fair to slightly impaired. DIAGNOSES Psychiatric: 1. Psychosis, not otherwise specified, F29.0. 2. Major depressive disorder, recurrent, severe, F33.2. Secondary diagnosis: Deferred. Medical diagnosis: Please refer to H and P. Stressors: Psychosocial stressors. ASSESSMENT/PLAN 1. Supportive psychotherapy and psychoeducation provided to the patient. 2. Educated about benefits and side effects of medication and course and prognosis of illness. 3. Advised to continue with Haldol and Cogentin. Haldol 5 mg at bedtime. If needed, plan to consider adjusting the dosage further. We will continue to follow. Please feel free to call if any questions, telephone #[phone]. Dictated by... Husam Stevens M.D. MAURA/valente TD: 12/06/2016 08:06 JOB #: [id number] CONSULTATION REPORT Page 1 of 1 X Husam Stevens MD X CONSULTATION REPORT
--- NOTE | ~2016-12-02 | CR63 ---
[facility] A Service of [facility] RADIOLOGY TEXT RESULTS PATIENT: ENRIKE LLANES LOCATION: [facility] 320-01 : 55 UNIT #: [id number] AGE: [address]: Radha Jackson MD SEX: F ORDER DR: [id number] [place], [place] [address] [id number] I MR#: [id number] Acc #: [id number] NAME: ENRIKE LLANES. : 1955 SEX: F STUDY DATE/TIME: 12/04/2016 15:42 UNIT: [address] ROOM: 320 STUDY DESCRIPTION: CR Chest 2 View Attending Physician: Radha Jackson M.D. Ordering Physician: Radha Jackson M.D. Primary Care Physician: No Primary Care Physician MEDICAL IMAGING REPORT This report is preliminary unless electronic signature is present EXAM 2-view chest HISTORY Shortness of air worse this morning, chest pain COMPARISON 12/02/2016 FINDINGS 2 views of the chest demonstrates elevation of the right hemidiaphragm blunting the right CP angle findings suggesting right lower lobe volume loss and possible small right pleural effusion or pleural thickening. No focal airspace disease or consolidation seen. The left lung is clear. Heart, mediastinum unremarkable. The osseous structures appear normal. No pneumothorax. IMPRESSION Continued right-sided volume loss with right basilar atelectasis and questionable right pleural effusion and/or pleural thickening not significantly changed from 12/02/2016. Dictated by... Miguel Ann M.D. THIS IS AN ELECTRONICALLY VERIFIED REPORT Miguel Ann M.D. at 12/05/2016 10:51 PM ЮЛИЯ/michelle TD: 12/05/2016 05:33 JOB #: [id number] MEDICAL IMAGING REPORT [facility] A Service [facility] RADIOLOGY TEXT RESULTS PATIENT: ENRIKE LLANES LOCATION: [facility] 320- : 55 UNIT #: [id number] AGE: [address]: Radha Jackson MD SEX: F ORDER DR: Page 1 of 1 COPY
--- NOTE | ~2016-12-02 | CR72 ---
[facility] A Service of [facility] RADIOLOGY TEXT RESULTS PATIENT: ENRIKE LLANES LOCATION: [facility] : 55 UNIT #: [id number] AGE: [address]: Radha Jackson MD SEX: F ORDER DR: [id number] [facility] [address] [place], [place] [address] [id number] I MR#: [id number] Acc #: [id number] NAME: ENRIKE LLANES. : 1955 SEX: F STUDY DATE/TIME: 12/02/2016 22:16 UNIT: CEDOF ROOM: 48734 STUDY DESCRIPTION: CR Chest Single View Portable Attending Physician: Sierra Larson M.D. Ordering Physician: Vick Nelson D.O. Primary Care Physician: Primary Care Physician No MEDICAL IMAGING REPORT This report is preliminary unless electronic signature is present EXAM Portable chest x-ray 12/02/2016 HISTORY Hypoxia, short of air, confusion, weakness, began today. FINDINGS AP radiograph of the chest is presented. Most recent comparison 11/29/2016. Comparison also to older study from 2010. No acute-appearing bony abnormality. Mild cardiac enlargement. Stable. The lungs are moderately well inflated. There is chronic elevation of the right hemidiaphragm which is stable. There is blunting of the right lateral costophrenic sulcus which is stable and may be a reflection of pleural thickening or fibrotic change at the extreme right lung base laterally. No evidence of acute pulmonary disease on today's examination. No pleural effusion or pneumothorax. No suspicious nodule. Dictated by... Houston Elizalde M.D. THIS IS AN ELECTRONICALLY VERIFIED REPORT Huoston Elizalde M.D. at 12/03/2016 8:00 PM Ronald TD: 12/03/2016 06:59 JOB #: [id number] MEDICAL IMAGING REPORT Page 1 of 1 COPY
[2016-12-02 21:49] LABS: ARTERIAL BLD GAS O2 SATURATION 95.7 % (90.0-100.0); ARTERIAL BLOOD GAS CARBOXY HB 0.7 %sat (0.0-9.0); ARTERIAL BLOOD GAS HCO3 25.3 mmol/L; ARTERIAL BLOOD GAS MET HB 0.8 %sat (0.0-2.0); ARTERIAL BLOOD GAS PCO2 41.2 mmHg (35.0-45.0); ARTERIAL BLOOD GAS PO2 93.6 mmHg (80.0-100); ARTERIAL BLOOD GAS pH 7.397 (7.350-7.450)
[2016-12-02 21:51] LABS: ARTERIAL BLOOD GAS ALLEN TEST Y; ARTERIAL BLOOD GAS ART SITE LEFT RADIAL; ARTERIAL DRAW? YES
[2016-12-02 22:17] LABS: URINE SOURCE CLEAN CATCH
[2016-12-02 22:21] LABS: URINE APPEARANCE CLOUDY; URINE BILIRUBIN NEG (NEG); URINE BLOOD NEG (NEG); URINE COLOR YELLOW; URINE GLUCOSE NEG (NEG); URINE KETONE TRACE (NEG); URINE LEUKOCYTE ESTERASE TRACE (NEG); URINE NITRATE NEG (NEG); URINE PROTEIN NEG (NEG); URINE SPECIFIC GRAVITY 1.017 (1.003-1.035); URINE UROBILINOGEN 0.2 MG/DL (NEG)
[2016-12-02 22:24] LABS: URINE BACTERIA AUWI NEG (NEGATIVE); URINE SQUAMOUS EPITHELIAL CELL OCC /[HPF]; UWBCS1 AUWI 0-2 (0-5)
[2016-12-02 22:43] LABS: CULTURE INDICATED? NO; U HYALINE CASTS AUWI 0-2 /[LPF]
[2016-12-03 01:02] LABS: BASOPHIL# 0.1 X10e3 (0-0.3); BASOPHIL% 0.6 % (0-2.5); DIFF IND YES; EOSINOPHIL# 0.1 X10e3 (0-0.7); EOSINOPHIL% 0.6 % (0.0-7.0); HEMATOCRIT 31.5 % (35.0-45.0); MEAN CELL VOLUME 83.1 FL (83-96); MEAN CORPUSCULAR HEMOGLOBIN 26.4 PG (28-34); MEAN CORPUSCULAR HGB CONC 31.7 g/dL (30-36); MEAN PLATELET VOLUME 9.1 FL (6.5-11.5); MONOCYTE# 1.4 X10e3 (0-1.0); MONOCYTE% 8.5 % (3.0-12.0); NEUTROPHIL# 13.2 X10e3 (1.5-7.1); NEUTROPHIL% 78.3 % (40-75); PLATELET COUNT 183 X10e3 (140-420); RED BLOOD COUNT 3.79 X10e (3.90-5.30); RED CELL DISTRIBUTION WIDTH 16.4 % (11.0-15.5); WHITE BLOOD COUNT 16.9 X10e3 (4.0-10.5)
[2016-12-03 01:02] LABS: POC - CKMB 1.6 ng/mL (0.0-7.9); POC - TROPONIN <0.05 ng/mL (<=0.05)
[2016-12-03 01:26] LABS: ALBUMIN SERUM 3.5 g/dL (3.5-5.0); ALKALINE PHOSPHATASE 58 U/L (32-92); ALT (SGPT) 24 U/L (10-40); AST (SGOT) 14 U/L (10-42); BILIRUBIN, DIRECT 0.1 mg/dL (0.0-0.2); BILIRUBIN,INDIRECT 0.2 mg/dL (0.0-0.9); BILIRUBIN,TOTAL 0.3 mg/dL (0.2-2.0); BLOOD UREA NITROGEN 29 mg/dL (9-23); BUN/CREATININE RATIO 12.08; CALCIUM SERUM 9.1 mg/dL (8.4-10.2); CARBON DIOXIDE 25 mmol/L (22-31); CHLORIDE 100 mmol/L (100-111); CREATININE SERUM 2.4 mg/dL (0.6-1.4); GLOM FILT RATE Estimated 24.4 mL/min (>60); GLUCOSE FASTING 203 mg/dL (70-110); POTASSIUM 4.3 mmol/L (3.5-5.1); PROTEIN TOTAL SERUM 7.2 g/dL (6.0-8.3); SALICYLATE <4.0 mg/dL; SODIUM 136 mmol/L (135-145)
[2016-12-03 01:28] LABS: ACETAMINOPHEN <10 ug/mL; ALCOHOL BLOOD <5 mg/dL (0)
[2016-12-03 01:33] LABS: ANISOCYTOSIS SL; HYPOCHROMIA SL; PLATELET ESTIMATE NORMAL (NORMAL)
[2016-12-03 01:34] LABS: POLYCHROMASIA SL
[2016-12-03 01:49] LABS: AMPHETAMINE NEG (NEG); BARBITURATES NEG (NEG); BENZODIAZEPINES NEG (NEG); COCAINE NEG (NEG); MARIJUANA NEG (NEG); OPIATES NEG (NEG); TRICYCLIC ANTIDEPRESSANTS POS (NEG); U METHADONE NEG (NEG)
[2016-12-03] MEDS ORDERED: SYNTHROID0.15 MG PO (02:11)
[2016-12-03] MEDS ORDERED: GLUCOPHAGE500 M1 PO (02:12)
[2016-12-03] MEDS ORDERED: METOPROLOL TAR25 MG PO (02:13)
[2016-12-03] MEDS ORDERED: PANTOPRAZOLE SO40 MG PO (02:14)
[2016-12-03] MEDS ORDERED: MOBIC PO (02:15)
[2016-12-03] MEDS ORDERED: ZYLOPRIM100 MG PO (02:15)
[2016-12-03] MEDS ORDERED: ASPIR-TRIN325 MG PO (02:16)
[2016-12-03] MEDS ORDERED: CARVEDILOL25 MG PO (02:17)
[2016-12-03] MEDS ORDERED: REMERON15 MG PO ×2 (02:19→03:06)
[2016-12-03] MEDS ORDERED: OXYCODONE-APAP1 EAC5 PO (02:21)
[2016-12-03] MEDS ORDERED: BACLOFEN10 MG PO (02:22)
[2016-12-03] MEDS ORDERED: CATAPRES0.1 MG PO (02:22)
[2016-12-03] MEDS ORDERED: AL-MAG HYDROX-S30 M1 PO (02:49)
[2016-12-03] MEDS ORDERED: ACETAMINOPHEN650 M3 PO (02:52)
[2016-12-03] MEDS ORDERED: MILK OF MAGNESIA PO (03:06)
[2016-12-03] MEDS ORDERED: B-COMPLEX WIT400 MC1 PO (03:09)
[2016-12-03] MEDS ORDERED: THIAMINE HCL100 M1 PO (03:09)
[2016-12-03] MEDS ORDERED: CYANOCOBALAM1000 MCG PO (03:10)
[2016-12-03] MEDS ORDERED: HALDOL0.5 MG PO (03:12)
[2016-12-03] MEDS ORDERED: PERCOCET5/325 PO (03:14)
[2016-12-03] MEDS ORDERED: LOVENOX30 MG/0.3 SUBQ (03:15)
[2016-12-03 05:08] LABS: BASOPHIL# 0.1 X10e3 (0-0.3); BASOPHIL% 0.6 % (0-2.5); EOSINOPHIL# 0.1 X10e3 (0-0.7); EOSINOPHIL% 0.5 % (0.0-7.0); HEMATOCRIT 31.1 % (35.0-45.0); HEMOGLOBIN 9.8 gm/dL (12.0-16.0); LYMPHOCYTE% 13.4 % (17.0-45.0); MEAN CELL VOLUME 82.5 FL (83-96); MEAN CORPUSCULAR HEMOGLOBIN 25.9 PG (28-34); MEAN CORPUSCULAR HGB CONC 31.4 g/dL (30-36); MEAN PLATELET VOLUME 9.2 FL (6.5-11.5); MONOCYTE# 1.3 X10e3 (0-1.0); NEUTROPHIL# 11.4 X10e3 (1.5-7.1); NEUTROPHIL% 76.5 % (40-75); PLATELET COUNT 114 X10e3 (140-420); RED BLOOD COUNT 3.77 X10e (3.90-5.30); RED CELL DISTRIBUTION WIDTH 15.9 % (11.0-15.5); WHITE BLOOD COUNT 14.9 X10e3 (4.0-10.5)
[2016-12-03 05:13] LABS: DIFF IND NO
[2016-12-03 05:25] LABS: BUN/CREATININE RATIO 13.88; CALCIUM SERUM 8.5 mg/dL (8.4-10.2); CREATININE SERUM 1.8 mg/dL (0.6-1.4); GLOM FILT RATE Estimated 34.6 mL/min (>60); POTASSIUM 3.9 mmol/L (3.5-5.1)
[2016-12-03 07:33] LABS: PARTIAL THROMBOPLASTIN TIME 24.8 SECONDS (23.5-31.3)
[2016-12-04 05:35] LABS: HEMATOCRIT 32.6 % (35.0-45.0); HEMOGLOBIN 10.1 gm/dL (12.0-16.0); MEAN CELL VOLUME 82.9 FL (83-96); MEAN CORPUSCULAR HEMOGLOBIN 25.6 PG (28-34); MEAN CORPUSCULAR HGB CONC 30.9 g/dL (30-36); MEAN PLATELET VOLUME 9.3 FL (6.5-11.5); RED BLOOD COUNT 3.93 X10e (3.90-5.30); RED CELL DISTRIBUTION WIDTH 16.3 % (11.0-15.5); WHITE BLOOD COUNT 12.2 X10e3 (4.0-10.5)
[2016-12-04 06:19] LABS: ALBUMIN SERUM 3.4 g/dL (3.5-5.0); BILIRUBIN,TOTAL 0.6 mg/dL (0.2-2.0); BUN/CREATININE RATIO 14.54; CALCIUM SERUM 9.1 mg/dL (8.4-10.2); CREATININE SERUM 1.1 mg/dL (0.6-1.4); GLOM FILT RATE Estimated 62.8 mL/min (>60); POTASSIUM 4.3 mmol/L (3.5-5.1); PROTEIN TOTAL SERUM 7.8 g/dL (6.0-8.3)
[2016-12-04 07:22] LABS: CK TOTAL 56 IU/L (26-140)
[2016-12-05 12:15] LABS: HEMATOCRIT 33.1 % (35.0-45.0); HEMOGLOBIN 10.5 gm/dL (12.0-16.0); MEAN CELL VOLUME 82.5 FL (83-96); MEAN CORPUSCULAR HEMOGLOBIN 26.1 PG (28-34); MEAN CORPUSCULAR HGB CONC 31.7 g/dL (30-36); MEAN PLATELET VOLUME 9.4 FL (6.5-11.5); RED BLOOD COUNT 4.01 X10e (3.90-5.30); RED CELL DISTRIBUTION WIDTH 16.3 % (11.0-15.5); WHITE BLOOD COUNT 9.4 X10e3 (4.0-10.5)
[2016-12-05 12:42] LABS: ALBUMIN SERUM 3.6 g/dL (3.5-5.0); BILIRUBIN,TOTAL 0.6 mg/dL (0.2-2.0); CALCIUM SERUM 9.4 mg/dL (8.4-10.2); CREATININE SERUM 1.2 mg/dL (0.6-1.4); GLOM FILT RATE Estimated 56.5 mL/min (>60); MAGNESIUM 1.3 mg/dL (1.6-3.0); POTASSIUM 3.7 mmol/L (3.5-5.1); PROTEIN TOTAL SERUM 8.1 g/dL (6.0-8.3)
[2016-12-07] MEDS ORDERED: ALBUTEROL17 GM INH (10:49)
[2016-12-07] MEDS ORDERED: COGENTIN0.5 M1 PO (10:49)
[2016-12-07] MEDS ORDERED: HALDOL PO (10:49)
[2016-12-07] MEDS ORDERED: SYMBICORT INH (10:50)
== END 2016-12-07 14:21 | disposition home or self-care (01) | DRG 682 ==
LOC: CED 21:52 → CEDOF 12-03 03:04 → C2A 12-03 12:19 → C3A PCU 12-04 08:23
PROVIDERS: Emergency Medicine; Internal Medicine
DX: N17.9 Acute kidney failure, unspecified (principal); J96.21 Acute and chronic respiratory failure with hypoxia; J44.1 Chronic obstructive pulmonary disease with (acute) exacerbation; Z68.43 Body mass index [BMI] 50.0-59.9, adult; F33.2 Major depressive disorder, recurrent severe without psychotic features; E66.01 Morbid (severe) obesity due to excess calories; E11.65 Type 2 diabetes mellitus with hyperglycemia; T38.0X5A Adverse effect of glucocorticoids and synthetic analogues, initial encounter; D64.9 Anemia, unspecified; M19.90 Unspecified osteoarthritis, unspecified site; E89.0 Postprocedural hypothyroidism; Z96.651 Presence of right artificial knee joint; I10 Essential (primary) hypertension; E83.42 Hypomagnesemia; F29 Unspecified psychosis not due to a substance or known physiological condition; Z90.710 Acquired absence of both cervix and uterus; Z79.82 Long term (current) use of aspirin; Z79.84 Long term (current) use of oral hypoglycemic drugs
CPT/HCPCS: 36415; 36600; 70450; 71010; 71020; 78582; 80048; 80053; 80076; 80307; 81003; 82140; 82550; 82553; 82803; 82947; 83605; 83735; 83880; 84443; 84484; 85025; 85027; 85379; 85610; 85730; 93005; 94640; 94664; 94760; 99285; A9540; A9567; G0480; J1650; J1815; J2060; J2920; J3475